=== PATIENT | female | born 1970 | race Caucasian/White ===

== ENCOUNTER 2016-10-15 21:43 | Emergency (ER) | payer SELFPAY ==
[~2016-10-15] VITALS: Ht 165.1 cm; Wt 158.8 kg
[2016-10-15 21:43] VITALS: BP_SYST 137
[~2016-10-15 21:43] MED LIST: CLIN-77 PO; DOXY100T2 PO; FAMO20TA98 PO; GLU500 PO
[2016-10-16] MEDS ORDERED: cefTRIAXone 1 GM IVPB PREMIX 50 ML IV ONE ×2
[2016-10-16 00:24] LABS: HEMATOCRIT 34.4 % (36-48); HEMOGLOBIN 11.9 g/dL (12.0-16.0); MEAN CORPUSCULAR HEMOGLOBIN 33 pg (27-31); MEAN CORPUSCULAR HGB CONC 35 % (32-36); MEAN CORPUSCULAR VOLUME 95 fL (79.0-98.0); PLATELET COUNT (AUTO) 183 K/uL (130-430); RED BLOOD CELL COUNT(AUTO) 3.61 MIL/uL (4.2-6.2); RED CELL DISTRIBUTION WIDTH 12.7 % (9.0-15.0); WHITE BLOOD COUNT (AUTO) 18.9 K/uL (4.8-10.8)
[2016-10-16 00:35] LABS: CALCIUM 7.5 mg/dL (8.4-11.0); CREATININE 1.04 mg/dL (0.55-1.30); POTASSIUM 3.7 mmol/L (3.5-5.1)
[2016-10-16 00:40] LABS: ALBUMIN 2.5 g/dL (3.4-4.8); TOTAL BILIRUBIN 0.5 mg/dL (0.0-1.0); TOTAL PROTEIN, SERUM 6.4 g/dL (6.4-8.3)
[2016-10-16 00:55] LABS: BAND % (MANUAL) 4 % (0-6); BASOPHILS % (MANUAL) 0 % (0-2); EOSINOPHILS % (MANUAL) 0 % (0-7); LYMPHOCYTES % (MANUAL) 4 % (20-46); MONOCYTES % (MANUAL) 3 % (0-11)
[2016-10-16 01:50] VITALS: BP_SYST 113
== END 2016-10-16 01:50 | disposition home or self-care (01) ==
LOC: SED 21:43
DX: L03.115 Cellulitis of right lower limb (principal); E11.9 Type 2 diabetes mellitus without complications; E66.01 Morbid (severe) obesity due to excess calories; Z68.43 Body mass index [BMI] 50.0-59.9, adult; Z79.899 Other long term (current) drug therapy
CPT/HCPCS: 36415; 80053; 82962; 85007; 85027; 87040; 96365; 99284; J0696

== ENCOUNTER 2017-09-22 13:04 | Emergency (ER) | payer SELFPAY ==
[~2017-09-22] VITALS: Ht 167.6 cm; Wt 136.1 kg
[2017-09-22 13:15] VITALS: BP_SYST 190
[2017-09-22 14:09] LABS: BILIRUBIN,URINE NEGATIVE (NEGATIVE); CLARITY/URINE CLEAR (CLEAR); COLOR,URINE YELLOW (YELLOW); GLUCOSE,URINE 2+ (NEGATIVE); KETONES,URINE NEGATIVE (NEGATIVE); LEUKOCYTE ESTERASE ,URINE NEGATIVE (NEGATIVE); NITRITE, URINE NEGATIVE (NEGATIVE); PH,URINE 6.5 (5.0-8.0); PROTEIN URINE 3+ (NEGATIVE); UROBILINOGEN,URINE 0.2 (0.2-1.0)
[2017-09-22 14:11] LABS: HEMOGLOBIN 13.6 g/dL (12.0-16.0)
[2017-09-22 14:16] LABS: BLOOD, URINE TRACE (NEGATIVE)
[2017-09-22 14:17] LABS: BACTERIA,URINE FEW /HPF (None Seen); MUCUS,URINE None Seen /LPF (None Seen); RBC,URINE 0-3 /HPF (0-3); WBC,URINE 0-3 /HPF (0-3)
[2017-09-22 14:18] LABS: HEMATOCRIT 40.8 % (36-48); MEAN CORPUSCULAR HEMOGLOBIN 33 pg (27-31); MEAN CORPUSCULAR HGB CONC 33 % (32-36); MEAN CORPUSCULAR VOLUME 98 fL (79.0-98.0); PLATELET COUNT (AUTO) 284 K/uL (130-430); RED BLOOD CELL COUNT(AUTO) 4.19 MIL/uL (4.2-6.2); RED CELL DISTRIBUTION WIDTH 12.3 % (9.0-15.0); WHITE BLOOD COUNT (AUTO) 14.3 K/uL (4.8-10.8)
[2017-09-22 14:29] LABS: ALBUMIN 3.1 g/dL (3.4-4.8); CALCIUM 8.2 mg/dL (8.4-11.0); CREATININE 0.96 mg/dL (0.55-1.30); TOTAL BILIRUBIN 0.4 mg/dL (0.0-1.0)
[2017-09-22 14:30] LABS: BAND % (MANUAL) 0 % (0-6); BASOPHILS % (MANUAL) 0 % (0-2); EOSINOPHILS % (MANUAL) 2 % (0-7); LYMPHOCYTES % (MANUAL) 7 % (20-46); MONOCYTES % (MANUAL) 5 % (0-11)
[2017-09-22] MEDS ORDERED: ACETAMINOPHEN 500 MG TABLET PO ONE (15:00)
[2017-09-22 15:40] VITALS: BP_SYST 186
== END 2017-09-22 15:40 | disposition home or self-care (01) ==
LOC: SED 13:04
DX: J06.9 Acute upper respiratory infection, unspecified (principal); E66.01 Morbid (severe) obesity due to excess calories; E11.9 Type 2 diabetes mellitus without complications; Z91.041 Radiographic dye allergy status; Z68.42 Body mass index [BMI] 45.0-49.9, adult
CPT/HCPCS: 36415; 80053; 81000-TC; 85007; 85027; 86710; 99284

== ENCOUNTER 2019-04-07 17:55 | Inpatient (IN) | payer MEDICAID ==
[~2019-04-07] VITALS: Ht 167.6 cm; Wt 182.8 kg
[~2019-04-07 17:55] MED LIST changes: -CLIN-77 PO; +CLIN300C11 PO; +FAMO-132 PO; -FAMO20TA98 PO
[2019-04-07 17:57] VITALS: BP_SYST 215
--- NOTE | 2019-04-07 18:00 | NUR ---
Patient to ER bed 08 to gown for evaluation. Side rails up.
[2019-04-07] MEDS ORDERED: IPRATROPIUM/ALBUTEROL SULFATE 3 ML AMPUL.NEB (DUONEB) INH ONE (18:15)
--- NOTE | 2019-04-07 18:15 | NUR ---
Patient came into the ER due to cough that started this afternoon. Patient advised that she started having difficulty breathing at work and she decided to come to ER. Patient O2 at 96% and patient not presenting any signs of acute respiratory distress. Patient breathing and tachypnic 22 breath/min. Patient is obese.
[2019-04-07] MEDS ORDERED: NACL 0.9% 1,000 ML IV ONE ×2 (18:21→21:45)
--- NOTE | 2019-04-07 18:22 | NUR ---
ER Dr. Sandoval at bedside examining patient.
--- NOTE | 2019-04-07 19:20 | NUR ---
Report recieved from TIFFANIE Lopez. Will continue care.
[2019-04-07 19:30] LABS: BASOPHILS % (AUTO) 0.4 % (0.0-2.0); EOSINOPHILS # (AUTO) 0.2 K/uL (0.0-0.4); EOSINOPHILS % (AUTO) 1.5 % (0.0-4.0); HEMATOCRIT 42.8 % (36-48); HEMOGLOBIN 14.2 g/dL (12.0-16.0); LYMPHOCYTES # (AUTO) 1.1 K/uL (1.0-5.5); LYMPHOCYTES % (AUTO) 9.1 % (20.5-51.5); MEAN CORPUSCULAR HEMOGLOBIN 33 pg (27-31); MEAN CORPUSCULAR HGB CONC 33 % (32-36); MEAN CORPUSCULAR VOLUME 100 fL (79.0-98.0); MONOCYTES # (AUTO) 0.6 K/uL (0.0-1.0); MONOCYTES % (AUTO) 5.1 % (1.7-9.3); NEUTROPHILS % (AUTO) 83.9 % (40.0-70.0); PLATELET COUNT (AUTO) 221 K/uL (130-430); RED BLOOD CELL COUNT(AUTO) 4.27 MIL/uL (4.2-6.2); RED CELL DISTRIBUTION WIDTH 12.9 % (9.0-15.0)
[2019-04-07] MEDS ORDERED: ONDANSETRON HCL 4 MG/2 ML VIAL IVP ONE (19:30)
--- NOTE | 2019-04-07 19:30 | NUR ---
Pt has 2 episodes of vomiting. MD aware and ordered 2mL Zofran. Pt medicated. Pt tolerated well. Will continue to monitor.
[2019-04-07 19:43] LABS: CALCIUM 8.3 mg/dL (8.4-11.0); CREATININE 0.94 mg/dL (0.55-1.30); POTASSIUM 3.9 mmol/L (3.5-5.1)
[2019-04-07 20:00] LABS: ALBUMIN 2.7 g/dL (3.4-4.8); TOTAL BILIRUBIN 0.3 mg/dL (0.0-1.0)
[2019-04-07] MEDS ORDERED: METOCLOPRAMIDE HCL 10 MG/2 ML VIAL IVP ONE (20:15)
[2019-04-07] MEDS ORDERED: cefTRIAXone 1 GM in D5W 50 ML IV ONE (20:15)
[2019-04-07] MEDS ORDERED: cefTRIAXone 1 GM IVPB PREMIX 50 ML IV ONE (20:47)
--- NOTE | 2019-04-07 21:20 | NUR ---
Ultrasound at bedside.
--- NOTE | 2019-04-07 21:40 | NUR ---
Respiratory at bedisde getting ABG.
--- NOTE | 2019-04-07 22:12 | NUR ---
Patient Severe sepsis risk at this time.
[2019-04-07] MEDS ORDERED: METF1000 PO (22:19)
--- NOTE | 2019-04-07 22:20 | NUR ---
Medication reconciliation completed with information provided by patient. Any prior medication reconciliation on file was reviewed and corrected.
--- NOTE | 2019-04-07 22:24 | NUR ---
Patient states she is full code
[2019-04-07] MEDS ORDERED: LevALBUTEROL HCL 1.25 MG/0.5 ML *CONC.* VIAL.NEB (XOPENEX CONC.) INH PRN (22:45)
[2019-04-07] MEDS ORDERED: traMADol HCL HCL 50 MG TABLET (ULTRAM) PO PRN (22:45)
--- NOTE | 2019-04-07 22:46 | NUR ---
Spoke with after hours pharmacy about max dose of lovenox. After hours pharmacy states 145 mg is max dose. MD Alfredo notified.
--- NOTE | 2019-04-07 23:20 | NUR ---
Patient will be admitted to care of [facility]. Admitted to TELEMETRY unit. Will go to room 109C. Belongings list completed. Complete and up to date summary report printed. SBAR report to be given at bedside with opportunity for questions.
--- NOTE | 2019-04-07 23:21 | NUR ---
Transfer to TELEMETRY ROOM 109C via ACLS protocol. Licensed nurse present. IV present no signs or symptoms of infiltration.
--- NOTE | 2019-04-07 23:40 | NUR ---
ADMIT NOTE Received pt from ER to the floor with a diagnosis of PNA/HYPOXEMIA. Admission process initiated. patient oriented to pain management, safety and call light-teach back done.
[2019-04-07 23:57] VITALS: BP_SYST 169
--- NOTE | 2019-04-08 | NUR ---
OPENING NOTES Patient awake, assessment done per protocol. Patient has no signs of respiratory distress and discomfort noted. Denies pain at SOB at this time. Patient on 2L of oxygen via nasal cannula. IV site, patency noted. Call light within reach, patient educated to use call light when assistance is needed. Patient verbalized understanding. Safety precautions in place. Be alarm on. Will continue to monitor patient.
[2019-04-08 00:22] VITALS: BP_SYST 157
--- NOTE | 2019-04-08 02:16 | NUR ---
Consultation Paged Reason for Consultation: PNA Was consult called: Y Person who was notified: Cherelle Consulting Physician: Molly Restrepo Power Crane Operator Ordering Physician: Dr. Evans
--- NOTE | 2019-04-08 02:30 | NUR ---
RN ROUNDS Patient asleep at this time. No signs of respiratory distress and discomfort noted. Breathing even and unlabored. Call light within reach. Will continue to monitor patient.
[2019-04-08 04:00] VITALS: BP_SYST 116
--- NOTE | 2019-04-08 04:30 | NUR ---
RN ROUNDS Patient asleep at this time, no signs of respiratory distress and discomfort noted. Breathing even and unlabored. On 2L of oxygen via nasal cannula, attached properly. Safety precautions in place. Will continue to monitor patient.
--- NOTE | 2019-04-08 04:45 | NUR ---
Paged Dr. Evans
[2019-04-08] MEDS: INSULIN REGULAR, HUMAN 100 UNITS/ML, 10 ML VIAL (humuLIN R) SUBCUT PRN ×4 (06:20→20:34)
--- NOTE | 2019-04-08 07:00 | NUR ---
CLOSING NOTES/BS 399 Patient awake at this time. No signs of respiratory distress noted. Denies pain and discomfort. No SOB. On 2L of oxygen via nasal cannula. Patient verbalized feeling better with the breathing and able to expectorate phlegm. BS was 399, 10 units of regular insulin was given. Call light within reach. Safety precautions in place. All needs met throughout the shift. Will endorsed to oncoming shift nurse.
--- NOTE | 2019-04-08 07:30 | NUR ---
INITIAL NOTE PT AWAKE, ON 2L NC TOLERATING WELL. PT SATURATING AT 96%. PT DENIES ANY SOB AT THIS TIME. IV SALINE LOCKED. CALL LIGHT WITHIN REACH, BED IN LOW AND LOCKED POSITION WITH BED ALARM ON.
[2019-04-08 08:00] VITALS: BP_SYST 116
[2019-04-08] MEDS: ENOXAPARIN SODIUM 120 MG/0.8 ML SYRINGE SUBCUT SCH (08:13)
[2019-04-08] MEDS: metFORMIN HCL 500 MG TABLET PO SCH (08:14)
[2019-04-08] MEDS: LOSARTAN POTASSIUM 25 MG TABLET PO SCH ×2 (08:14→20:23)
[2019-04-08] MEDS: ENOXAPARIN SODIUM 30 MG/0.3 ML SYRINGE SUBCUT SCH (08:14)
[2019-04-08] MEDS: cefTRIAXone 1 GM IVPB PREMIX 50 ML IV SCH (08:33)
[2019-04-08] MEDS: AZITHROMYCIN 500 MG in NS 250 ML IV SCH (08:33)
[2019-04-08] MEDS ORDERED: *LOVENOX 1MG/KG Q12H/PHARMACY XX SCH (09:00)
--- NOTE | 2019-04-08 09:30 | NUR ---
RN ROUNDS PT RESTING IN BED, NO ACUTE DISTRESS NOTED, PT ON 2L NC TOLERATING WELL. WILL CONTINUE TO MONITOR.
[2019-04-08] MEDS: ACETAMINOPHEN 325 MG TABLET PO PRN ×2 (11:15→20:25)
[2019-04-08 11:30] VITALS: BP_SYST 132
--- NOTE | 2019-04-08 11:30 | NUR ---
BSG 287 EDUCATED PT ON USES AND SIDE EFFECTS OF REGULAR INSULIN. PT VERBALIZED UNDERSTANDING. PER SLIDING SCALE 6 UNITS OF REGULAR INSULIN ADMINISTERED. PT TOLERATED WELL.
--- NOTE | 2019-04-08 13:24 | NUR ---
RN ROUNDS/VQ SCAN PT INCONTINENT OF URINE. ASSISTED PT TO RESTROOM AND SUPPLIED TOWELS AND NEW GOWN FOR PT. CHANGED LINEN. ASSISTED PT BACK TO BED. VQ SCAN BEING DONE AT BEDSIDE. PT DENIES ANY SOB OR DISTRESS.
[2019-04-08 15:45] VITALS: BP_SYST 138
--- NOTE | 2019-04-08 16:31 | NUR ---
RN ROUNDS/DR. KRAFT PT SITTING UP AT EDGE OF BED. PT WITHOUT OXYGEN, TOLERATING WELL. MD AT BEDSIDE EXAMINING PT. MD TO KEEP PT ONE MORE NIGHT WITH MORE IV ANTIBIOTICS AND BREATHING TREATMENTS.
--- NOTE | 2019-04-08 18:07 | NUR ---
RN ROUNDS PT UP TO BATHROOM, STEADY GAIT. PT NOT ON OXYGEN, TOLERATING WELL.
--- NOTE | 2019-04-08 18:39 | NUR ---
CLOSING NOTES PT AWAKE, WOUND CARE DONE, REFER TO MST FOR TREATMENT. PT TOLERATED WELL. IV SALINE LOCKED. ALL NEEDS MET THROUGHOUT SHIFT. CALL LIGHT WITHIN REACH, BED IN LOW AND LOCKED POSITION WITH BED ALARM ON. WILL CONTINUE TO MONITOR UNTIL PT CARE IS ENDORSED TO CLIENT ACCOUNT MANAGER RN.
[2019-04-08 19:30] VITALS: BP_SYST 127
--- NOTE | 2019-04-08 19:30 | NUR ---
INITIAL ASSESSMENT PATIENT IS LAYING IN BED AND STABLE. NO S/S OF RESPIRATORY DISTRESS NOTED. CALL LIGHT IN REACH. BED IS LOCKED, AND AT THE LOWEST POSITION. PATIENT REFUSED BED ALARM DESPITE EDUCATIONAL EFFORTS. WILL CONTINUE TO EDUCATE. PLAN OF CARE DISCUSSED WITH PATIENT AT THIS TIME. SAFETY, RESPIRATORY, ASPIRATION, AND FALL PRECAUTIONS WILL BE IN PLACE THROUGHOUT THE SHIFT.
--- NOTE | 2019-04-08 21:30 | NUR ---
ROUNDING ASSISTED PATIENT TO THE RESTROOM AT THIS TIME. PATIENT TOLERATED WELL. NO S/S OF RESPIRATORY DISTRESS NOTED. CALL LIGHT IN REACH. BED IS LOCKED AND AT THE LOWEST POSITION. WILL CONTINUE TO MONITOR.
--- NOTE | 2019-04-08 23:30 | NUR ---
ROUNDING PATIENT IS RESTING IN BED. NO S/S OF RESPIRATORY DISTRESS NOTED. CALL LIGHT IN REACH. BED IS LOCKED, ALARMED, AND AT THE LOWEST POSITION. WILL CONTINUE TO MONITOR.
[2019-04-09 00:30] VITALS: BP_SYST 127
--- NOTE | 2019-04-09 00:30 | NUR ---
WOUND CARE WOUND CARE AND PICTURE DONE AT THIS TIME. PATIENT TOLERATED WELL. WILL CONTINUE TO MONITOR.
--- NOTE | 2019-04-09 02:30 | NUR ---
ROUNDING PATIENT IS SLEEPING IN BED. NO S/S OF RESPIRATORY DISTRESS NOTED. CALL LIGHT IN REACH. BED IS LOCKED, ALARMED, AND AT THE LOWEST POSITION. WILL CONTINUE TO MONITOR.
--- NOTE | 2019-04-09 04:30 | NUR ---
ROUNDING PATIENT IS SLEEPING IN BED AND STABLE. NO S/S OF RESPIRATORY DISTRESS. CALL LIGHT IN REACH. BED IS LOCKED, ALARMED, AND AT THE LOWEST POSITION.
[2019-04-09] MEDS: INSULIN REGULAR, HUMAN 100 UNITS/ML, 10 ML VIAL (humuLIN R) SUBCUT PRN ×4 (06:16→21:16)
--- NOTE | 2019-04-09 06:56 | NUR ---
CLOSING NOTES PATIENT IS LAYING IN BED AND STABLE. NO S/S OF RESPIRATORY DISTRESS. CALL LIGHT IN REACH. BED IS LOCKED AND AT THE LOWEST POSITION. FALL, SAFETY, RESPIRATORY, AND ASPIRATION PRECAUTIONS HAS BEEN PLACED THROUGHOUT THE SHIFT. WILL CONTINUE TO MONITOR UNTIL REPORT IS GIVEN TO AM NURSE BY BEDSIDE.
--- NOTE | 2019-04-09 07:30 | NUR ---
Opening Note Received report from retail shift supervisor RN. Pt AAOx4, ambulatory. States no pain or distress at this time. Pt states she ambulated to void but also had some emesis of "yellow mucus." No other complaints at this time.
[2019-04-09] MEDS: LevALBUTEROL HCL 1.25 MG/0.5 ML *CONC.* VIAL.NEB (XOPENEX CONC.) INH SCH ×3 (07:39→20:29)
[2019-04-09 08:00] VITALS: BP_SYST 160
[2019-04-09] MEDS: metFORMIN HCL 500 MG TABLET PO SCH (08:18)
[2019-04-09] MEDS: cefTRIAXone 1 GM IVPB PREMIX 50 ML IV SCH (08:19)
[2019-04-09] MEDS: LOSARTAN POTASSIUM 25 MG TABLET PO SCH ×2 (08:19→19:45)
[2019-04-09] MEDS: ENOXAPARIN SODIUM 120 MG/0.8 ML SYRINGE SUBCUT SCH (08:24)
[2019-04-09 08:25] LABS: BASOPHILS % (AUTO) 0.3 % (0.0-2.0); EOSINOPHILS # (AUTO) 0.3 K/uL (0.0-0.4); HEMATOCRIT 37.7 % (36-48); HEMOGLOBIN 12.7 g/dL (12.0-16.0); LYMPHOCYTES # (AUTO) 0.9 K/uL (1.0-5.5); LYMPHOCYTES % (AUTO) 8.5 % (20.5-51.5); MEAN CORPUSCULAR HEMOGLOBIN 34 pg (27-31); MEAN CORPUSCULAR HGB CONC 34 % (32-36); MEAN CORPUSCULAR VOLUME 100 fL (79.0-98.0); MONOCYTES # (AUTO) 0.6 K/uL (0.0-1.0); MONOCYTES % (AUTO) 5.7 % (1.7-9.3); NEUTROPHILS # (AUTO) 8.4 K/uL (1.8-7.7); NEUTROPHILS % (AUTO) 82.5 % (40.0-70.0); PLATELET COUNT (AUTO) 214 K/uL (130-430); RED BLOOD CELL COUNT(AUTO) 3.77 MIL/uL (4.2-6.2); RED CELL DISTRIBUTION WIDTH 13.1 % (9.0-15.0); WHITE BLOOD COUNT (AUTO) 10.1 K/uL (4.8-10.8)
[2019-04-09] MEDS: ENOXAPARIN SODIUM 30 MG/0.3 ML SYRINGE SUBCUT SCH (08:25)
[2019-04-09] MEDS: ACETAMINOPHEN 325 MG TABLET PO PRN ×2 (08:49→19:46)
[2019-04-09 09:07] LABS: CALCIUM 7.7 mg/dL (8.4-11.0); CREATININE 0.94 mg/dL (0.55-1.30); POTASSIUM 3.7 mmol/L (3.5-5.1)
--- NOTE | 2019-04-09 10:00 | NUR ---
IV site noted with infiltration and pt c/o burning sensation. D/C IV site, catheter tip intact, bleeding controlled. New IV site placed to left hand 22G. Pt tolerated well.
[2019-04-09] MEDS: AZITHROMYCIN 500 MG in NS 250 ML IV SCH (10:43)
[2019-04-09 12:00] VITALS: BP_SYST 130
--- NOTE | 2019-04-09 12:01 | NUR ---
Rounds Pt states pain resolved with PRN tylenol. Pt also states she ambulates frequently to void. Pt states no n/v at this time.
--- NOTE | 2019-04-09 15:09 | NUR ---
Dietitian Recommendations * Recommend [facility] high carb-75 gm diet w/ Tuan BID (modular provides 180 kcal/day, 5 gm protein/day) LP, RD Please refer to Nutrition Assessment for details. Addendum: 04/09/19 at [address] Amended: Links added.
[2019-04-09] MEDS ORDERED: D5W 1,000 ML IV PRN (15:26)
[2019-04-09] MEDS ORDERED: DEXTROSE 50% JECT 50 ML DISP.SYRIN IVP PRN (15:30)
[2019-04-09] MEDS ORDERED: GLUCOSE 15 GM GEL (in 37.5 GM TUBE) PO PRN (15:30)
[2019-04-09 16:00] VITALS: BP_SYST 138
--- NOTE | 2019-04-09 16:05 | NUR ---
rounds Pt states no pain or distress at this time.
--- NOTE | 2019-04-09 18:50 | NUR ---
Closing Pt up in bed eating dinner. Pt states no pain or distress at this time. States, "I'm actually feeling a little better." IV site intact patent, no infiltration noted. Will endorse plan of care to admin assistant RN.
--- NOTE | 2019-04-09 19:20 | NUR ---
OPENING NOTES RECEIVED PATIENT IN BED AAO X4. BREATHING UNLABORED ON ROOM AIR. IV LINE INTACT. BED IN LOWEST LOCKED POSITION. CALL LIGHT WITH IN REACH.
[2019-04-09 19:31] VITALS: BP_SYST 170
--- NOTE | 2019-04-09 19:45 | NUR ---
BP PATIENT BP 170/90. NIGHT TIME BP MEDICATION GIVEN WITH TYLENOL FOR C/O HEADACHE.
--- NOTE | 2019-04-09 20:15 | NUR ---
WOUND CARE WOUND CARE DONE ON PATIENT RT LOWER LEG WOUND. CLEANSED WITH NS AND PAT DRY. COVERED WITH CLEAN GAUZE AND BECKIE WRAP.
[2019-04-09 23:50] VITALS: BP_SYST 156
--- NOTE | 2019-04-10 00:15 | NUR ---
ROUNDS PATIENT AWAKE IN BED. DENIES PAIN AT THIS TIME.VITAL SIGNS STABLE.
--- NOTE | 2019-04-10 03:15 | NUR ---
ROUNDS PATIENT RESTING IN BED. NO DISTRESS NOTED.
[2019-04-10] MEDS: INSULIN REGULAR, HUMAN 100 UNITS/ML, 10 ML VIAL (humuLIN R) SUBCUT PRN ×3 (06:10→17:48)
--- NOTE | 2019-04-10 06:36 | NUR ---
CLOSING NOTES PATIENT NEEDS ATTENDED. NO CHANGED IN PATIENT CONDITION.
[2019-04-10] MEDS: LevALBUTEROL HCL 1.25 MG/0.5 ML *CONC.* VIAL.NEB (XOPENEX CONC.) INH SCH ×2 (07:44→16:18)
[2019-04-10 08:00] VITALS: BP_SYST 167
[2019-04-10] MEDS: metFORMIN HCL 500 MG TABLET PO SCH (09:05)
[2019-04-10] MEDS: cefTRIAXone 1 GM IVPB PREMIX 50 ML IV SCH (09:06)
[2019-04-10] MEDS: AZITHROMYCIN 500 MG in NS 250 ML IV SCH (09:07)
[2019-04-10] MEDS: ENOXAPARIN SODIUM 120 MG/0.8 ML SYRINGE SUBCUT SCH (09:11)
[2019-04-10] MEDS: ENOXAPARIN SODIUM 30 MG/0.3 ML SYRINGE SUBCUT SCH (09:17)
[2019-04-10] MEDS: LOSARTAN POTASSIUM 25 MG TABLET PO SCH (09:18)
--- NOTE | 2019-04-10 14:00 | NUR ---
Wound Evaluation: Wound consult orders received from Dr. Evans. Thank you, Dr. Evans, for the consult. Patient received in a Morgan bed with an Isoflex BAO mattress, awake, alert, oriented. Marques score is a 15. Patient is able to to turn in bed and ambulate independently. Past Medical History: Diabetes Mellitus Type 2, Obesity, and chronic Left Lower Extremity Cellulitis, Lymphedema of the lower extremities. Recent labs: WBC 10.1, RBC 3.77, hemoglobin 12.7, hematocrit 37.7, sodium 129, chloride 95, BUN 14, creatinine 0.94, GFR 68, glucose 259, alkaline phosphatase 138, albumin 2.7. Microbiology: Blood Culture results x 2 in progress. Intrinsic factors that delay wound healing: Diabetes Mellitus, Hypoalbuminemia. Extrinsic factors that delay wound healing: Decreased immobility. Wound Assessment: 1. Right Distal Anterior Lower Extremity: Ulcer of unknown etiology, probable relation to Diabetes Mellitus, present on admission. Wound bed has 90% yellow tissue, 10% pink tissue. No odor, scant yellow drainage. Periwound intact. Surrounding tissue has erythema. Extremity has erythema, nonpitting edema, and calor. Wound measures 1.6 cm x 1.9 cm. Recommend: Cleanse site with normal saline. Apply SurePrep to nicolás-wound. Apply Venelex ointment to wound bed. Cover with non-adhesive foam dressing. Wrap with padmini wrap and secure with tape. Elevate extremity q shift to help reduce edema. Also recommend: Encourage and assist patient as needed with repositioning every two hours with pillow support, and off-load pressure areas with pillows for pressure re-distribution. Apply Eucerin cream to dry skin on extremities.
[2019-04-10] MEDS ORDERED: ENALAPRILAT DIHYDRATE 1.25 MG/ML VIAL IVP PRN (14:30)
[2019-04-10] MEDS ORDERED: BALSAM PERU/CASTOR OIL 60 GM OINT...G. TP SCH (14:45)
--- NOTE | 2019-04-10 14:59 | NUR ---
Nutrition Note Nutrition Consult received for R LE Wound 04/28/19 [id number]. Pt was seen and assessed by RD for Nutrition Assessment 04/09/19. Please refer to Nutrition Assessment for details. RD to continue to follow as per nutrition care standards.
[2019-04-10] MEDS ORDERED: LISI-600 PO (17:03)
[2019-04-10] MEDS ORDERED: CIPR-260 PO (17:05)
[2019-04-10] MEDS ORDERED: BACTROBAN TP (17:06)
[2019-04-10] MEDS ORDERED: SULF1TAB48 PO (17:10)
[2019-04-10 18:31] VITALS: BP_SYST 152
[2019-04-10 19:35] VITALS: BP_SYST 148
--- NOTE | 2019-04-10 20:30 | NUR ---
D/C Patient Patient given medication reconciliation form and D/C instructions. Exit Care provided. Patient verbalized understanding. MD discussed with patient the results and treatment provided. Patient taken via wheelchair by this RN to front of hospital, taken home by brother via personal auto for discharge to home. Patient in stable condition, ID band removed. IV catheter removed, intact and dressing applied, no active bleeding. Rx prescribed by MD given. Patient educated on pain management. All belongings sent with patient.
[2019-04-10] MEDS ORDERED: EMOLLIENT COMBINATION NO.73 78 GM CREAM..G. TP SCH (21:00)
[2019-04-11] MEDS ORDERED: ENOXAPARIN SODIUM 40 MG/0.4 ML SYRINGE SUBCUT SCH (09:00)
== END 2019-04-10 20:30 | disposition home or self-care (01) | DRG 720 ==
LOC: SED 17:55 → STU 22:42
PROVIDERS: ADMIT Family Medicine; ATTEND Family Medicine
DX: A41.9 Sepsis, unspecified organism (principal); J96.00 Acute respiratory failure, unspecified whether with hypoxia or hypercapnia; J15.6 Pneumonia due to other Gram-negative bacteria; E44.0 Moderate protein-calorie malnutrition; E66.01 Morbid (severe) obesity due to excess calories; E11.65 Type 2 diabetes mellitus with hyperglycemia; L03.115 Cellulitis of right lower limb; Z68.44 Body mass index [BMI] 60.0-69.9, adult; I10 Essential (primary) hypertension; I89.0 Lymphedema, not elsewhere classified; J20.9 Acute bronchitis, unspecified; R09.02 Hypoxemia; Z83.3 Family history of diabetes mellitus; Z91.041 Radiographic dye allergy status; Z79.2 Long term (current) use of antibiotics; Z79.899 Other long term (current) drug therapy; Z91.012 Allergy to eggs
CPT/HCPCS: 36415; 36600; 71045; 78579; 78580-TC; 80048; 80053; 82803-TC; 82962; 83605; 83880; 84484; 85025; 85379; 86710; 87040-TC; 93005; 93970; 94640; 96365; 96375; 99291; A9539; A9540; G0378; J0456; J0696; J1650; J1815; J2405; J2765; J7050; J7612; J7620